=== PATIENT | female | born 2000 | race American Indian/Alaskan Native ===

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

== ENCOUNTER 2019-03-29 19:28 | Emergency (ER) | payer BC, MEDICAID ==
[2019-03-29 21:01] VITALS: BP 141/79
[2019-03-30] MEDS ORDERED: ALBUTEROL 2.5 MG/3 ML NEBU IH ONE (04:07)
[2019-03-30] MEDS ORDERED: dexAMETHasone 20 MG/5 ML VIAL IM ONE (04:07)
[2019-03-30] MEDS ORDERED: IPRATROPIUM 0.02% NEBU 2.5 ML IH ONE (04:07)
--- NOTE | 2019-03-30 05:35 | XRay Report ---
CHEST 2 VIEWS INDICATION: wheezing/cough. COMPARISON: FINDINGS: Support devices: None. Heart: Within normal limits. Lungs: Diffuse airway disease is present. No acute air space or interstitial disease. Pleura: No significant pleural effusion. No pneumothorax. Additional findings: None. IMPRESSION: 1. Airway disease is noted consistent with asthma Signer Name: Nash Cavazos MD Signed: 03/30/2019 5:31 AM Workstation Name: [id number]
--- NOTE | 2019-03-30 06:37 | Emergency Department Report ---
- General Chief Complaint: Adult Asthma Stated Complaint: COUGH/LYSSA Time Seen by Provider: 03/30/19 03:46 Source: patient Mode of arrival: Ambulatory Limitations: No Limitations - History of Present Illness Initial Comments: This is a 19-year-old female nontoxic, well nourished in appearance, no acute signs of distress presents to the ED with c/o of dry cough, wheezing and shortn ess of breathe x5 days. Patient describes cough as dry and nonproductive. Patient denies any sick contacts. Patient denies any recent travels, long car, recent hospital stays. Patient denies any calf pain or calf tenderness. Patient denies any chest pain, short of breath, fever, chills, nausea, vomiting, hemoptysis, numbness, tingling, headache or stiff neck. MD Complaint: cough, other (wheezing) -: days(s) (5) Severity scale (0 -10): 0 Consistency: constant Improves With: nothing Worsens With: nothing Associated Symptoms: cough, shortness of breath. denies: fever, chills, myalgias, diaphoresis, headache, rhinorrhea, nasal congestion, sore throat, stiff neck, chest pain, abdominal pain, nausea, vomiting, diarrhea, dysuria, rash, confusion, right sweats, weight loss, epistaxis, hoarseness, ear pain Treatments Prior to Arrival: none - Related Data Home Medications Medication Instructions Recorded Confirmed Last Taken Albuterol Sulfate [Proair Hfa] 04/20/16 Unknown Ibuprofen 04/20/16 Unknown Previous Rx's Medication Instructions Recorded Last Taken Type Ibuprofen [Motrin 600 MG tab] 600 mg PO Q8H PRN #30 tablet 04/20/16 Unknown Rx ALBUTEROL Inhaler (OR & NICU) 2 puff IH QID PRN #8.5 gram 03/30/19 Unknown Rx [ProAir HFA Inhaler] Prednisone [predniSONE 10 mg 10 mg PO .TAPER #1 tab.ds.pk 03/30/19 Unknown Rx (6-Day Pack, 21 Tabs)] Allergies Allergy/AdvReac Type Severity Reaction Status Date / Time No Known Allergies Allergy Unverified 04/20/16 10:46 ED Review of Systems ROS: Stated complaint: COUGH/LYSSA Other details as noted in HPI Constitutional: denies: chills, fever Eyes: denies: eye pain, eye discharge, vision change ENT: denies: ear pain, throat pain Respiratory: cough, shortness of breath, wheezing Cardiovascular: denies: chest pain, palpitations Endocrine: no symptoms reported Gastrointestinal: denies: abdominal pain, nausea, diarrhea Genitourinary: denies: urgency, dysuria, discharge Musculoskeletal: denies: back pain, joint swelling, arthralgia Skin: denies: rash, lesions Neurological: denies: headache, weakness, paresthesias Psychiatric: denies: anxiety, depression Hematological/Lymphatic: denies: easy bleeding, easy bruising ED Past Medical Hx - Past Medical History Previous Medical History?: Yes Hx Asthma: Yes Additional medical history: left knee pain - Surgical History Past Surgical History?: Yes Additional Surgical History: Left knee meniscus - Social History Smoking Status: Never Smoker Substance Use Type: Alcohol, Marijuana - Medications Home Medications: Home Medications Medication Instructions Recorded Confirmed Last Taken Type Albuterol Sulfate [Proair Hfa] 04/20/16 Unknown History Ibuprofen 04/20/16 Unknown History Ibuprofen [Motrin 600 MG tab] 600 mg PO Q8H PRN #30 tablet 04/20/16 Unknown Rx ALBUTEROL Inhaler (OR & NICU) 2 puff IH QID PRN #8.5 gram 03/30/19 Unknown Rx [ProAir HFA Inhaler] Prednisone [predniSONE 10 mg 10 mg PO .TAPER #1 tab.ds.pk 03/30/19 Unknown Rx (6-Day Pack, 21 Tabs)] ED Physical Exam - General Limitations: No Limitations General appearance: alert, in no apparent distress - Head Head exam: Present: atraumatic, normocephalic - Neck Neck exam: Present: normal inspection. Absent: tenderness, meningismus, lym phadenopathy - Respiratory Respiratory exam: Present: wheezes. Absent: respiratory distress, rales, rhonchi, stridor, chest wall tenderness, accessory muscle use, decreased breath sounds, prolonged expiratory - Cardiovascular Cardiovascular Exam: Present: regular rate, normal rhythm, normal heart sounds. Absent: bradycardia, tachycardia, irregular rhythm, systolic murmur, diastolic murmur, rubs, gallop - Extremities Exam Extremities exam: Present: normal inspection, full ROM - Back Exam Back exam: Present: normal inspection, full ROM - Neurological Exam Neurological exam: Present: alert, oriented X3, normal gait - Psychiatric Psychiatric exam: Present: normal affect, normal mood - Skin Skin exam: Present: warm, dry, intact, normal color. Absent: rash ED Course Vital Signs 03/29/19 20:45 Temperature 98.6 F Pulse Rate 70 Respiratory 18 Rate Blood Pressure 141/79 O2 Sat by Pulse 97 Oximetry - Reevaluation(s) Reevaluation #1: 03/30/19 06:41 Patient is speaking in full sentences with no signs of distress noted. ED Medical Decision Making - Medical Decision Making This is a 19-year-old female that presents with viral bronchitis. Patient is stable and was examined by me. Chest x-ray has been obtained and dictated by radiologist with normal exam. Patient is notified of x-ray results with no questions noted. Patient did receive breathing treatment and steroids in the ED which patient the symptoms has resolved and subsided. Posttreatment and there is no wheezing upon auscultation. Patient is discharged with albuterol and prednisone. Patient was instructed to increase hydration, rest and take Motrin for fever episodes. Vitals stable. Patient is nonfebrile and normal heart rate. Patient was instructed Follow-up with a primary care doctor in 3-5 days or if symptoms worsen and continue return to emergency room as soon as possible. At time time of discharge, the patient does not seem toxic or ill in appearance. No acute signs of distress noted. Patient agrees to discharge treatment plan of care. No further questions noted by the patient. Critical care attestation.: If time is entered above; I have spent that time in minutes in the direct care of this critically ill patient, excluding procedure time. ED Disposition Clinical Impression: Acute viral bronchiolitis Disposition: DC-01 TO HOME OR SELFCARE Is pt being admited?: No Does the pt Need Aspirin: No Condition: Stable Instructions: Acute Bronchitis (ED) Additional Instructions: Follow-up with a primary care doctor in 3-5 days or if symptoms worsen and continue return to emergency room as soon as possible. Prescriptions: Prednisone [predniSONE 10 mg (6-Day Pack, 21 Tabs)] 10 mg PO .TAPER #1 tab.ds.pk ALBUTEROL Inhaler (OR & NICU) [ProAir HFA Inhaler] 2 puff IH QID PRN #8.5 gram PRN Reason: Shortness Of Breath Referrals: PRIMARY MD SARAH [Primary Care Provider] - 3-5 Days FROILAN ROSE MD [Staff Physician] - 3-5 Days [facility] [Outside] - 3-5 Days Forms: Work/School Release Form(ED)
== END 2019-03-30 06:55 | disposition home or self-care (01) ==
LOC: ED 19:28
DX: J21.9 Acute bronchiolitis, unspecified (principal); J45.909 Unspecified asthma, uncomplicated; F12.10 Cannabis abuse, uncomplicated; Z79.1 Long term (current) use of non-steroidal anti-inflammatories (NSAID); Z98.890 Other specified postprocedural states; Z79.899 Other long term (current) drug therapy
CPT/HCPCS: 71046; 94644; 96372; 99283; J1100

== ENCOUNTER 2019-04-25 13:29 | Emergency (ER) | payer BC ==
[2019-04-25 13:54] VITALS: BP 119/74
--- NOTE | 2019-04-25 14:14 | Event Note ---
ED Screening Note Date of service: 04/25/19 Time: 14:13 ED Screening Note: 19 y o f presents with upper abd pin with n/v x 4days This initial assessment/diagnostic orders/clinical plan/treatment(s) is/are subject to change based on patients health status, clinical progression and re-assessment by fellow clinical providers in the ED. Further treatment and workup at subsequent clinical providers discretion. Patient/guardian urged not to elope from the ED as their condition may be serious if not clinically assessed and managed. Initial orders include: ua,upt cbc,cmp ivf? acc eval
[2019-04-25 16:16] LABS: Hematocrit 38.2 % (30.3-42.9); Hemoglobin 12.9 gm/dl (10.1-14.3); Mean Corpuscular HGB Conc 34 % (30-34); Mean Corpuscular Volume 88 fl (79-97); Platelet Count 256 K/mm3 (140-440); Red Blood Count 4.33 M/mm3 (3.65-5.03); Red Cell Distribution Width 13.3 % (13.2-15.2)
[2019-04-25 16:47] LABS: Basophils % (Manual) 0 % (0.0-1.8); Total Cells Counted 100
[2019-04-25 16:48] LABS: RBC Morphology Normal
[2019-04-25 17:21] LABS: Alanine Aminotransferase 13 units/L (7-56); Albumin 4.5 g/dL (3.9-5); BUN/Creatinine Ratio 23; Blood Urea Nitrogen 9 mg/dL (7-17); Calcium 10.1 mg/dL (8.4-10.2); Hemolysis Index 9
[2019-04-25 17:23] LABS: Bilirubin,Urine NEG (Negative); Blood,Urine NEG (Negative); Color,Urine Yellow (Yellow); Mucus,Urine 3+ /HPF; Protein,Urine <15 mg/dL mg/dL (Negative)
--- NOTE | 2019-04-25 20:29 | Emergency Department Report ---
ED N/V/D HPI - General Chief complaint: Nausea/Vomiting/Diarrhea Stated complaint: VOMITTING, STOMACH APIN Time Seen by Provider: 04/25/19 19:38 Source: patient Mode of arrival: Ambulatory Limitations: No Limitations - History of Present Illness Initial comments: Ms. Lynne is a 19 y/ o f who presents with upper abd pin with n/v x 4days. LMP 2 months ago. there is no fever or chills, states am n/v. pt is tolerating po at this time. Symptoms are exacerbated by nothing, symptoms are relieved by nothing. MD complaint: nausea, vomiting, abdominal pain (cramp) Onset/Timin -: Gradual Associated Abdominal Pain: Yes Location: LLQ, RLQ Radiation: none Severity: mild Pain Scale: 3 Quality: cramping Consistency: intermittent Improves with: none Worsens with: none Context: other (AMN ) Associated Symptoms: nausea/vomiting. denies: fever/chills - Related Data Home Medications Medication Instructions Recorded Confirmed Last Taken Albuterol Sulfate [Proair Hfa] 04/20/16 Unknown Ibuprofen 04/20/16 Unknown Previous Rx's Medication Instructions Recorded Last Taken Type Ibuprofen [Motrin 600 MG tab] 600 mg PO Q8H PRN #30 tablet 04/20/16 Unknown Rx Albuterol INH(or & Nicu Only) 2 puff IH QID PRN #8.5 gram 03/30/19 Unknown Rx [ProAir HFA Inhaler] Prednisone [predniSONE 10 mg 10 mg PO .TAPER #1 tab.ds.pk 03/30/19 Unknown Rx (6-Day Pack, 21 Tabs)] Doxylamine Succinate/Vit B6 1 each PO Q8H PRN #12 tablet. 04/25/19 Unknown Rx [Jessica Giron 10-10 mg Tablet] Allergies Allergy/AdvReac Type Severity Reaction Status Date / Time No Known Allergies Allergy Unverified 04/20/16 10:46 ED Review of Systems ROS: Stated complaint: VOMITTING, STOMACH APIN Other details as noted in HPI Constitutional: denies: chills, fever Eyes: denies: eye pain, eye discharge, vision change ENT: denies: ear pain, throat pain Respiratory: denies: cough, shortness of breath, wheezing Cardiovascular: denies: chest pain, palpitations Endocrine: no symptoms reported Gastrointestinal: abdominal pain, nausea, vomiting. denies: diarrhea, constipation Genitourinary: denies: urgency, dysuria, frequency, hematuria, discharge Musculoskeletal: denies: back pain, joint swelling, arthralgia Skin: denies: rash, lesions Neurological: denies: headache, weakness, numbness, paresthesias, confusion, vertigo Psychiatric: denies: anxiety, depression Hematological/Lymphatic: denies: easy bleeding, easy bruising ED Past Medical Hx - Past Medical History Previous Medical History?: Yes Hx Asthma: Yes Additional medical history: left knee pain - Surgical History Past Surgical History?: Yes Additional Surgical History: Left knee meniscus - Social History Smoking Status: Never Smoker Substance Use Type: Marijuana - Medications Home Medications: Home Medications Medication Instructions Recorded Confirmed Last Taken Type Albuterol Sulfate [Proair Hfa] 04/20/16 Unknown History Ibuprofen 04/20/16 Unknown History Ibuprofen [Motrin 600 MG tab] 600 mg PO Q8H PRN #30 tablet 04/20/16 Unknown Rx Albuterol INH(or & Nicu Only) 2 puff IH QID PRN #8.5 gram 03/30/19 Unknown Rx [ProAir HFA Inhaler] Prednisone [predniSONE 10 mg 10 mg PO .TAPER #1 tab.ds.pk 03/30/19 Unknown Rx (6-Day Pack, 21 Tabs)] Doxylamine Succinate/Vit B6 1 each PO Q8H PRN #12 tablet.dr 04/25/19 Unknown Rx [Jessica Giron 10-10 mg Tablet] ED Physical Exam - General Limitations: No Limitations General appearance: alert, in no apparent distress - Head Head exam: Present: atraumatic, normocephalic - Eye Eye exam: Present: normal appearance, PERRL, EOMI Pupils: Present: normal accommodation - ENT ENT exam: Present: mucous membranes moist - Neck Neck exam: Present: normal inspection, full ROM. Absent: tenderness - Respiratory Respiratory exam: Present: normal lung sounds bilaterally. Absent: respiratory distress, wheezes, stridor, chest wall tenderness - Cardiovascular Cardiovascular Exam: Present: regular rate, normal rhythm, normal heart sounds. Absent: systolic murmur, diastolic murmur, rubs, gallop - GI/Abdominal GI/Abdominal exam: Present: soft, normal bowel sounds. Absent: distended, tenderness, guarding, rebound, rigid, bruit, hernia - Rectal Rectal exam: Present: deferred - Extremities Exam Extremities exam: Present: normal inspection, full ROM, normal capillary refill. Absent: tenderness - Back Exam Back exam: Present: normal inspection, full ROM. Absent: tenderness, CVA tenderness (R), CVA tenderness (L), rash noted - Neurological Exam Neurological exam: Present: alert, oriented X3, CN II-XII intact, normal gait - Psychiatric Psychiatric exam: Present: normal affect, normal mood - Skin Skin exam: Present: warm, dry, intact, normal color. Absent: rash ED Course Vital Signs 04/25/19 13:51 Temperature 98.9 F Pulse Rate 66 Respiratory 16 Rate Blood Pressure 119/74 O2 Sat by Pulse 100 Oximetry ED Medical Decision Making - Lab Data Result diagrams: 04/25/19 15:41 04/25/19 15:41 Labs 04/25/19 04/25/19 04/25/19 15:41 15:41 15:41 WBC 3.5 L RBC 4.33 Hgb 12.9 Hct 38.2 MCV 88 MCH 30 MCHC 34 RDW 13.3 Plt Count 256 [place] % (Auto) Packing Room Supervisor Add Manual Diff Complete Total Counted 100 Seg Neuts % (Manual) 57.0 Band Neutrophils % 0 Lymphocytes % (Manual) 26.0 Reactive Lymphs % (Man) 0 Monocytes % (Manual) 16.0 H Eosinophils % (Manual) 1.0 Basophils % (Manual) 0 Metamyelocytes % 0 Myelocytes % 0 Promyelocytes % 0 Blast Cells % 0 Nucleated RBC % Not Reportable Seg Neutrophils # Man 2.0 Band Neutrophils # 0.0 Lymphocytes # (Manual) 0.9 L Abs React Lymphs (Man) 0.0 Monocytes # (Manual) 0.6 Eosinophils # (Manual) 0.0 Basophils # (Manual) 0.0 Metamyelocytes # 0.0 Myelocytes # 0.0 Promyelocytes # 0.0 Blast Cells # 0.0 WBC Morphology Not Reportable Hypersegmented Neuts Not Reportable Hyposegmented Neuts Not Reportable Hypogranular Neuts Not Reportable Smudge Cells Not Reportable Toxic Granulation Not Reportable Toxic Vacuolation Not Reportable Dohle Bodies Not Reportable Pelger-Huet Anomaly Not Reportable Becki Rods Not Reportable Platelet Estimate Appears normal Clumped Platelets Not Reportable Plt Clumps, EDTA Not Reportable Large Platelets Not Reportable Giant Platelets Not Reportable Platelet Satelliting Not Reportable Plt Morphology Comment Not Reportable RBC Morphology Normal Dimorphic RBCs Not Reportable Polychromasia Not Reportable Hypochromasia Not Reportable Poikilocytosis Not Reportable Anisocytosis Not Reportable Microcytosis Not Reportable Macrocytosis Not Reportable Spherocytes Not Reportable Pappenheimer Bodies Not Reportable Sickle Cells Not Reportable Target Cells Not Reportable Tear Drop Cells Not Reportable Ovalocytes Not Reportable Helmet Cells Not Reportable [place] Bodies Not Reportable [place] Rings Not Reportable [place] Cells Not Reportable Bite Cells Not Reportable Crenated Cell Not Reportable Elliptocytes Not Reportable Acanthocytes (Spur) Not Reportable Rouleaux Not Reportable Hemoglobin C Crystals Not Reportable Schistocytes Not Reportable Malaria parasites Not Reportable Dave Bodies Not Reportable Hem Pathologist Commnt No Sodium 134 L Potassium 3.6 Chloride 98.4 Carbon Dioxide 17 L Anion Gap 22 BUN 9 Creatinine 0.4 L Estimated GFR > 60 BUN/Creatinine Ratio 23 Glucose 82 Calcium 10.1 Total Bilirubin 0.90 AST 21 ALT 13 Alkaline Phosphatase 36 Total Protein 8.2 Albumin 4.5 Albumin/Globulin Ratio 1.2 Lipase 17 HCG, Qual Positive Urine Color Urine Turbidity Urine pH Ur Specific [place] Urine Protein Urine Glucose (UA) Urine Ketones Urine Blood Urine Nitrite Urine Bilirubin Urine Urobilinogen Ur Leukocyte Esterase Urine WBC (Auto) Urine RBC (Auto) U Epithel Cells (Auto) Urine Mucus 04/25/19 16:15 WBC RBC Hgb Hct MCV MCH MCHC RDW Plt Count [place] % (Auto) Add Manual Diff Total Counted Seg Neuts % (Manual) Band Neutrophils % Lymphocytes % (Manual) Reactive Lymphs % (Man) Monocytes % (Manual) Eosinophils % (Manual) Basophils % (Manual) Metamyelocytes % Myelocytes % Promyelocytes % Blast Cells % Nucleated RBC % Seg Neutrophils # Man Band Neutrophils # Lymphocytes # (Manual) Abs React Lymphs (Man) Monocytes # (Manual) Eosinophils # (Manual) Basophils # (Manual) Metamyelocytes # Myelocytes # Promyelocytes # Blast Cells # WBC Morphology Hypersegmented Neuts Hyposegmented Neuts Hypogranular Neuts Smudge Cells Toxic Granulation Toxic Vacuolation Dohle Bodies Pelger-Huet Anomaly Becki Rods Platelet Estimate Clumped Platelets Plt Clumps, EDTA Large Platelets Giant Platelets Platelet Satelliting Plt Morphology Comment RBC Morphology Dimorphic RBCs Polychromasia Hypochromasia Poikilocytosis Anisocytosis Microcytosis Macrocytosis Spherocytes Pappenheimer Bodies Sickle Cells Target Cells Tear Drop Cells Ovalocytes Helmet Cells Jim[place] Bodies [place] Rings [place] Cells Bite Cells Crenated Cell Elliptocytes Acanthocytes (Spur) Rouleaux Hemoglobin C Crystals Schistocytes Malaria parasites Dave Bodies Hem Pathologist Commnt Sodium Potassium Chloride Carbon Dioxide Anion Gap BUN Creatinine Estimated GFR BUN/Creatinine Ratio Glucose Calcium Total Bilirubin AST ALT Alkaline Phosphatase Total Protein Albumin Albumin/Globulin Ratio Lipase HCG, Qual Urine Color Yellow Urine Turbidity Clear Urine pH 7.0 Ur Specific [place] 1.025 Urine Protein <15 mg/dl Urine Glucose (UA) Neg Urine Ketones 80 Urine Blood Neg Urine Nitrite Neg Urine Bilirubin Neg Urine Urobilinogen 4.0 Ur Leukocyte Esterase Neg Urine WBC (Auto) 1.0 Urine RBC (Auto) 1.0 U Epithel Cells (Auto) 4.0 Urine Mucus 3+ - Radiology Data Radiology results: report reviewed, image reviewed single IUP 6 weeks and 2 days, FHR: 107 bpm - Medical Decision Making US: Single IUP 6 weeks and 2 days, fhr: 107 bpm, plan diclegis prn n/v, follow up with [facility] in 2-3 days. pt is currently tolerating po intake without n/v, ivf complete. pt advises that she feels much better. will dc to home in stable condition at this time. Critical care attestation.: If time is entered above; I have spent that time in minutes in the direct care of this critically ill patient, excluding procedure time. ED Disposition Clinical Impression: Qualifiers: Weeks of gestation: less than 8 weeks Qualified Code(s): Z3A.01 - Less than 8 weeks gestation of Nausea and vomiting Qualifiers: Vomiting type: unspecified Vomiting Intractability: non-intractable Qualified Code(s): R11.2 - Nausea with vomiting, unspecified Disposition: DC-01 TO HOME OR SELFCARE Is pt being admited?: No Does the pt Need Aspirin: No Condition: Stable Instructions: (ED), Acute Nausea and Vomiting (ED) Prescriptions: Doxylamine Succinate/Vit B6 [Jessica Giron 10-10 mg Tablet] 1 each PO Q8H PRN #12 tablet.dr CAMACHO Reason: Nausea And Vomiting Referrals: PRIMARY CARE, [Primary Care Provider] - 3-5 Days Forms: Work/School Release Form(ED) Time of Disposition: 20:36
--- NOTE | 2019-04-25 20:36 | Ultrasound Report ---
ULTRASOUND OBSTETRIC Indication: abd pain pos preg Findings: There is a single, living intrauterine . [place]-rump length = .55 cm = 6 weeks, 2 day(s). heart rate is 107 beats per minute. The ovaries are normal. There is no free fluid. Impression: Single, living intrauterine with estimated sonographic age of 6 weeks, 2 day(s). Signer Name: Nash Cavazos MD Signed: 04/25/2019 8:32 PM Workstation Name: [id number]
== END 2019-04-25 20:45 | disposition home or self-care (01) ==
LOC: ED 13:29
DX: O21.8 Other vomiting complicating pregnancy (principal); J45.909 Unspecified asthma, uncomplicated; F12.10 Cannabis abuse, uncomplicated; Z79.1 Long term (current) use of non-steroidal anti-inflammatories (NSAID); Z79.899 Other long term (current) drug therapy; Z3A.01 Less than 8 weeks gestation of pregnancy
CPT/HCPCS: 36415; 76817; 80053; 81001; 83690; 84702; 84703; 85007; 85025

== ENCOUNTER 2021-03-06 11:14 | Emergency (ER) | payer BC ==
[2021-03-06] MEDS ORDERED: SODIUM CHLORIDE 0.9% 1000 ML 1,000 ML IV ONE (13:07)
[2021-03-06] MEDS ORDERED: MORPHINE 4 MG/1 ML INJ IV ONE (13:07)
[2021-03-06] MEDS ORDERED: ONDANSETRON 4 MG/2 ML INJ IV ONE (13:07)
[2021-03-06] MEDS ORDERED: FAMOTIDINE 20 MG TAB PO ONE (13:08)
--- NOTE | 2021-03-06 13:08 | Emergency Department Report ---
<GOLD SANCHEZ - Last Filed: 03/07/21 07:24> ED N/V/D HPI - General Chief complaint: Nausea/Vomiting/Diarrhea Stated complaint: ABD PAIN Time Seen by Provider: 03/06/21 12:47 Source: patient Mode of arrival: Ambulatory Limitations: No Limitations - History of Present Illness Initial comments: 21-year-old female with a past medical history of asthma was brought to the ER today by mom with complaints of nausea vomiting and abdominal pain. Patient states that she has been vomiting since February 27. She states that the emesis occurs about 3-4 times per day and is been mainly liquid or bile. She reports no coffee-ground emesis or hematemesis. She reports epigastric pain that radiates down into her lower abdomen which has been constant since she started vomiting. She denies any diarrhea or constipation. Her last bowel movement was yesterday and normal. She denies any UTI symptoms. Her last menstrual cycle was February 18. She is not on any control. She denies any abdominal surgeries in the past. She denies any illicit drug use or alcohol abuse. She denies any NSAID abuse. Patient states that she did go to an urgent care when the symptoms first started. They checked her urine and it was negative for . She was told that she was dehydrated and symptoms were likely related to reflux. Prescription for Zofran and Prilosec was supposedly called into the pharmacy, but when they went to the pharmacy to warehouse order picker the prescription the pharmacist reported to them that it was not available. Mom states that they tried calling the urgent care a few times without success in reaching anybody to talk about the prescriptions. MD complaint: nausea, vomiting, abdominal pain -: days(s) (since february 27) - Related Data Home Medications Medication Instructions Recorded Confirmed Last Taken Albuterol Sulfate [Proair Hfa] 04/20/16 Unknown Ibuprofen 04/20/16 Unknown Previous Rx's Medication Instructions Recorded Last Taken Type Ibuprofen [Motrin 600 MG tab] 600 mg PO Q8H PRN #30 tablet 04/20/16 Unknown Rx Albuterol Mdi (or & Nicu Only) 2 puff IH QID PRN #8.5 gram 03/30/19 Unknown Rx [ProAir HFA Inhaler] Prednisone [predniSONE 10 mg 10 mg PO .TAPER #1 tab.ds.pk 03/30/19 Unknown Rx (6-Day Pack, 21 Tabs)] Doxylamine Succinate/Vit B6 1 each PO Q8H PRN #12 tablet. 04/25/19 Unknown Rx [Jessica Giron 10-10 mg Tablet] Famotidine [Pepcid] 20 mg PO BID #30 tablet 03/06/21 Unknown Rx Ondansetron [Zofran Odt] 4 mg PO Q8HR #20 tab.rapdis 03/06/21 Unknown Rx Allergies Allergy/AdvReac Type Severity Reaction Status Date / Time No Known Allergies Allergy Verified 03/06/21 11:17 ED Review of Systems Comment: All other systems reviewed and negative Constitutional: denies: chills, diaphoresis, fever, malaise, weakness Eyes: denies: eye pain, eye discharge, vision change ENT: denies: ear pain, throat pain Respiratory: denies: cough, shortness of breath, SOB with exertion, SOB at rest, wheezing Cardiovascular: denies: chest pain, palpitations Gastrointestinal: abdominal pain, nausea, vomiting. denies: diarrhea, constipa tion, hematemesis, hematochezia Genitourinary: denies: urgency, dysuria, frequency, hematuria, discharge, abnormal menses, dyspareunia Musculoskeletal: denies: back pain, joint swelling, arthralgia, myalgia Skin: denies: rash, lesions, change in color, change in hair/nails, pruritus Neurological: denies: headache, weakness, numbness, paresthesias, confusion, abnormal gait, vertigo Psychiatric: denies: anxiety, depression, visual hallucinations, homicidal thoughts, suicidal thoughts Hematological/Lymphatic: denies: easy bleeding, easy bruising, swollen glands ED Past Medical Hx - Past Medical History Hx Asthma: Yes Additional medical history: left knee pain - Surgical History Additional Surgical History: Left knee meniscus - Social History Smoking Status: Never Smoker Substance Use Type: Marijuana - Medications Home Medications: Home Medications Medication Instructions Recorded Confirmed Last Taken Type Albuterol Sulfate [Proair Hfa] 04/20/16 Unknown History Ibuprofen 04/20/16 Unknown History Ibuprofen [Motrin 600 MG tab] 600 mg PO Q8H PRN #30 tablet 04/20/16 Unknown Rx Albuterol Mdi (or & Nicu Only) 2 puff IH QID PRN #8.5 gram 03/30/19 Unknown Rx [ProAir HFA Inhaler] Prednisone [predniSONE 10 mg 10 mg PO .TAPER #1 tab.ds.pk 03/30/19 Unknown Rx (6-Day Pack, 21 Tabs)] Doxylamine Succinate/Vit B6 1 each PO Q8H PRN #12 tablet. 04/25/19 Unknown Rx [Diclegis Dr 10-10 mg Tablet] Famotidine [Pepcid] 20 mg PO BID #30 tablet 03/06/21 Unknown Rx Ondansetron [Zofran Odt] 4 mg PO Q8HR #20 tab.rapdis 03/06/21 Unknown Rx ED Physical Exam - General Limitations: No Limitations General appearance: alert, in no apparent distress - Head Head exam: Present: atraumatic, normocephalic, normal inspection - Eye Eye exam: Present: normal appearance, PERRL, EOMI Pupils: Present: normal accommodation - Neck Neck exam: Present: normal inspection, full ROM. Absent: meningismus - Respiratory Respiratory exam: Present: normal lung sounds bilaterally. Absent: respiratory distress, wheezes, rales, rhonchi, stridor - Cardiovascular Cardiovascular Exam: Present: regular rate, normal rhythm, normal heart sounds - GI/Abdominal GI/Abdominal exam: Present: soft, tenderness (Epigastric ), guarding (mild ). Absent: distended, rebound, rigid - Neurological Exam Neurological exam: Present: alert, oriented X3, CN II-XII intact, normal gait - Psychiatric Psychiatric exam: Present: normal affect, normal mood ED Medical Decision Making - Lab Data Result diagrams: 03/06/21 14:35 03/06/21 14:35 - Radiology Data Radiology results: report reviewed Patient: SABRINA CORONA MR#: [id number] 3 : 2000 Acct:[id number] Age/Sex: 21 / F ADM Date: 03/06/21 Loc: ED Attending Dr: Ordering Physician: GOLD SANCHEZ Date of Service: 03/06/21 Procedure(s): US abdomen limited Accession Number(s): [id number] cc: GOLD SANCHEZ LIMITED RUQ ABDOMINAL ULTRASOUND INDICATION: epigastric pain/nausea vomiting. COMPARISON: No relevant prior imaging study available. FINDINGS: Pancreas: Visualized portions show no significant abnormality. Abdominal Aorta: No significant abnormality. IVC: No significant abnormality. Liver: The liver measures 11.7 cm in length. No significant abnormality. Normal hepatopedal blood flow in the main portal vein. Gallbladder: No significant abnormality. Bile ducts: No significant abnormality. Common bile duct measures 2 mm. Right kidney: No significant abnormality visualized.. Free fluid: None. Additional Findings: None. IMPRESSION: 1. Normal exam. Signer Name: Raffy Cifuentes MD Signed: 03/06/2021 2:20 PM Workstation Name: [id number] Transcribed By: HORACE Dictated By: Raffy Cifuentes MD Electronically Authenticated By: Raffy Cifuentes MD Signed Date/Time: 03/06/211419 DD/ 19 TD/TT: - Medical Decision Making 162: Patient reports feeling better after IV fluids, antiemetics and pain meds. Repeat abdominal exam shows a soft nontender abdomen. Gallbladder ultrasound negative for anything acute. All labs reviewed with patient --hCG is positive. Remaining labs unremarkable. Urinalysis was 41 WBCs, but leukocytes negative, nitrites negative and there is no bacteria and patient has no UTI symptoms. Reflex urine culture pending. I will continue to monitor culture and if positive patient will be started on an biotics. Given that patient has no lower abdominal pain or vaginal symptoms emergent pelvic ultrasound or further work-up indicated at this time. I did discuss all the results with patient. She feels better and is ready to go. Patient states she will follow up with [facility] to start care. I did discuss before if at any point she develops pelvic pain or vaginal bleeding to return immediately to the ER. Patient expressed understanding of all instructions and agree with plan. Patient was stable at time of discharge. ED Disposition Clinical Impression: Nausea and vomiting, Disposition: HOME / SELF CARE / HOMELESS Is pt being admited?: No Does the pt Need Aspirin: No Condition: Stable Instructions: Care, Nausea and Vomiting, Adult, [id number], First Trimester of Additional Instructions: I recommend that you take the Zofran as prescribed. Take the Pepcid as prescribed. Tylenol is the safest thing to take as needed for pain. I do recommend following up with your [facility], call next week to schedule an appointment and to start care. Return to the ER if at any point you develop severe low abdominal/pelvic pain with associated vaginal bleeding. Prescriptions: Famotidine [Pepcid] 20 mg PO BID #30 tablet Ondansetron [Zofran Odt] 4 mg PO Q8HR #20 tab.rapdis Referrals: [facility] [Provider Group] - 3-5 Days [facility] [Provider Group] - 3-5 Days Forms: Work/School Release Form(ED) Time of Disposition: 16:14 <MAE KASPER - Last Filed: 03/08/21 07:05> ED Review of Systems ROS: Stated complaint: ABD PAIN Other details as noted in HPI ED Course Vital Signs 03/06/21 03/06/21 11:22 16:30 Temperature 98.6 F Pulse Rate 93 H 60 Respiratory 20 16 Rate Blood Pressure 128/81 Blood Pressure 142/78 [Right] O2 Sat by Pulse 99 96 Oximetry ED Medical Decision Making - Lab Data Result diagrams: 03/06/21 14:35 03/06/21 14:35 - Medical Decision Making urine culture reviewed + skin polina. pt does not require call back for antibiotics Critical Care Time: No Critical care attestation.: If time is entered above; I have spent that time in minutes in the direct care of this critically ill patient, excluding procedure time.
--- NOTE | 2021-03-06 14:24 | Ultrasound Report ---
LIMITED RUQ ABDOMINAL ULTRASOUND INDICATION: epigastric pain/nausea vomiting. COMPARISON: No relevant prior imaging study available. FINDINGS: Pancreas: Visualized portions show no significant abnormality. Abdominal Aorta: No significant abnormality. IVC: No significant abnormality. Liver: The liver measures 11.7 cm in length. No significant abnormality. Normal hepatopedal blood irina w in the main portal vein. Gallbladder: No significant abnormality. Bile ducts: No significant abnormality. Common bile duct measures 2 mm. Right kidney: No significant abnormality visualized.. Free fluid: None. Additional Findings: None. IMPRESSION: 1. Normal exam. Signer Name: Raffy Cifuentes MD Signed: 03/06/2021 2:20 PM Workstation Name: [email or web address]
[2021-03-06 15:05] LABS: Bilirubin,Urine NEG (Negative); Blood,Urine NEG (Negative); Color,Urine Yellow (Yellow); Mucus,Urine 3+ /HPF
[2021-03-06 15:18] LABS: Alanine Aminotransferase 16 units/L (7-56); Albumin 4.4 g/dL (3.9-5); Blood Urea Nitrogen 10 mg/dL (7-17); Hemolysis Index 10
[2021-03-06 15:21] LABS: BUN/Creatinine Ratio 20
[2021-03-06 15:29] LABS: Hematocrit 38.9 % (30.3-42.9); Hemoglobin 12.8 gm/dl (10.1-14.3); Mean Corpuscular HGB Conc 33 % (30-34); Mean Corpuscular Volume 91 fl (79-97); Platelet Count 267 K/mm3 (140-440); Red Blood Count 4.26 M/mm3 (3.65-5.03); Red Cell Distribution Width 12.8 % (13.2-15.2)
[2021-03-06] MEDS ORDERED: POTASSIUM CHLORIDE ER 20 MEQ TAB PO ONE (16:11)
[2021-03-06 16:31] VITALS: BP 142/78
[2021-03-06 17:17] LABS: Band Neutrophils # (Manual) 0.1 K/mm3; Total Cells Counted 100
[2021-03-06 17:18] LABS: Platelet Estimate Consistent w Auto; RBC Morphology Normal
== END 2021-03-06 16:31 | disposition home or self-care (01) ==
LOC: ED 11:14
DX: O21.9 Vomiting of pregnancy, unspecified (principal); O26.899 Other specified pregnancy related conditions, unspecified trimester; Z3A.00 Weeks of gestation of pregnancy not specified; J45.909 Unspecified asthma, uncomplicated; F12.90 Cannabis use, unspecified, uncomplicated
CPT/HCPCS: 36415; 76705; 80053; 81001; 83690; 84703; 85007; 85025; 87086; 96361; 96374; 96375; 99284; J2270; J2405; J7030; Q0162

== ENCOUNTER 2021-10-23 11:01 | Emergency (ER) | payer BC ==
[2021-10-23 12:14] VITALS: BP 119/77
[2021-10-23 12:49] LABS: Basophils % (Auto) 0.8 % (0.0-1.8); Eosinophils % (Auto) 0.7 % (0.0-4.3); Hematocrit 38.5 % (30.3-42.9); Hemoglobin 13.4 gm/dl (10.1-14.3); Lymphocytes # (Auto) 0.7 K/mm3 (1.2-5.4); Lymphocytes % (Auto) 15.5 % (13.4-35.0); Mean Corpuscular HGB Conc 35 % (30-34); Mean Corpuscular Volume 90 fl (79-97); Monocytes # (Auto) 0.5 K/mm3 (0.0-0.8); Monocytes % (Auto) 11.8 % (0.0-7.3); Platelet Count 232 K/mm3 (140-440); Red Blood Count 4.26 M/mm3 (3.65-5.03); Red Cell Distribution Width 13.2 % (13.2-15.2)
[2021-10-23 13:37] LABS: Alanine Aminotransferase 20 units/L (7-56); Albumin 4.9 g/dL (3.9-5); Blood Urea Nitrogen 8 mg/dL (7-17); Calcium 9.9 mg/dL (8.4-10.2); Hemolysis Index 7
[2021-10-23 13:56] LABS: BUN/Creatinine Ratio 13
[2021-10-23] MEDS ORDERED: SUCRALFATE 1 GM TAB PO ONE (16:38)
[2021-10-23] MEDS ORDERED: FAMOTIDINE 20 MG TAB PO ONE (16:38)
[2021-10-23] MEDS ORDERED: ONDANSETRON 4 MG ODT TAB PO ONE (16:38)
--- NOTE | 2021-10-23 16:42 | Emergency Department Report ---
ED Abdominal Pain HPI - General Chief Complaint: Abdominal Pain Stated Complaint: NAUSEA,CHEST PAIN BELOW LEFT BREAST Source: patient Mode of arrival: Ambulatory Limitations: No Limitations - History of Present Illness Initial Comments: Patient is a nulliparous 21-year-old -[place] female with a history of asthma and chronic recurrent GERD which is untreated presents to the ED with complaint of acute onset persistent epigastric pain with a burning sensation that radiates to the substernal chest wall with nausea and vomiting intermittently for the last 2 days. Patient states that she has been taking Tums with minimal relief. Patient denies diarrhea, dysuria, urinary frequency and urgency, cough, sore throat, shortness of breath, headache, dizziness, syncope, hematemesis, hematochezia, vaginal discharge, vaginal bleeding, neck pain, palpitations, fever and chills or headache. MD Complaint: abdominal pain (Epigastric pain), other (Nausea and vomiting) -: days(s) (2) Location: epigastric Radiation: chest (Substernal with burning sensation) Migration to: no migration Severity: severe Severity scale (0 -10): 8 Quality: aching, sharp, burning Consistency: intermittent Improves With: nothing Worsens With: eating, vomiting Context: other (GERD) Associated Symptoms: denies other symptoms, nausea, vomiting, anorexia. denies: diarrhea, fever, constipation, dysuria, hematemesis, hematochezia, melena, hematuria, syncope - Related Data LMP Date: 10/02/21 Home Medications Medication Instructions Recorded Confirmed Last Taken Albuterol Sulfate [Proair Hfa] 04/20/16 Unknown Ibuprofen 04/20/16 Unknown Previous Rx's Medication Instructions Recorded Last Taken Type Ibuprofen [Motrin 600 MG tab] 600 mg PO Q8H PRN #30 tablet 04/20/16 Unknown Rx Albuterol Mdi (or & Nicu Only) 2 puff IH QID PRN #8.5 gram 03/30/19 Unknown Rx [ProAir HFA Inhaler] Prednisone [predniSONE 10 mg 10 mg PO .TAPER #1 tab.ds.pk 03/30/19 Unknown Rx (6-Day Pack, 21 Tabs)] Doxylamine Succinate/Vit B6 1 each PO Q8H PRN #12 tablet. 04/25/19 Unknown Rx [Jessica Giron 10-10 mg Tablet] Ondansetron [Zofran Odt] 4 mg PO Q8HR #20 tab.rapdis 03/06/21 Unknown Rx Dicyclomine [Bentyl] 20 mg PO Q6H PRN #30 tablet 10/23/21 Unknown Rx Famotidine [Pepcid] 20 mg PO BID #60 tablet 10/23/21 Unknown Rx Omeprazole 40 mg PO DAILY #30 cap 10/23/21 Unknown Rx Ondansetron [Zofran Odt] 4 mg PO Q8HR PRN #20 tab.rapdis 10/23/21 Unknown Rx Allergies Allergy/AdvReac Type Severity Reaction Status Date / Time No Known Allergies Allergy Verified 10/23/21 17:01 ED Review of Systems ROS: Stated complaint: NAUSEA,CHEST PAIN BELOW LEFT BREAST Other details as noted in HPI Constitutional: denies: chills, fever Eyes: denies: eye pain, eye discharge, vision change ENT: denies: ear pain, throat pain Respiratory: denies: cough, shortness of breath, wheezing Cardiovascular: denies: chest pain, palpitations Endocrine: no symptoms reported Gastrointestinal: abdominal pain, nausea, vomiting. denies: diarrhea Genitourinary: denies: urgency, dysuria, discharge Musculoskeletal: denies: back pain, joint swelling, arthralgia Skin: denies: rash, lesions Neurological: denies: headache, weakness, paresthesias Psychiatric: denies: anxiety, depression Hematological/Lymphatic: denies: easy bleeding, easy bruising ED Past Medical Hx - Past Medical History Hx Asthma: Yes Additional medical history: left knee pain - Surgical History Additional Surgical History: Left knee meniscus - Social History Smoking Status: Never Smoker Substance Use Type: Marijuana - Medications Home Medications: Home Medications Medication Instructions Recorded Confirmed Last Taken Type Albuterol Sulfate [Proair Hfa] 04/20/16 Unknown History Ibuprofen 04/20/16 Unknown History Ibuprofen [Motrin 600 MG tab] 600 mg PO Q8H PRN #30 tablet 04/20/16 Unknown Rx Albuterol Mdi (or & Nicu Only) 2 puff IH QID PRN #8.5 gram 03/30/19 Unknown Rx [ProAir HFA Inhaler] Prednisone [predniSONE 10 mg 10 mg PO .TAPER #1 tab.ds.pk 03/30/19 Unknown Rx (6-Day Pack, 21 Tabs)] Doxylamine Succinate/Vit B6 1 each PO Q8H PRN #12 tablet. 04/25/19 Unknown Rx [Jessica Giron 10-10 mg Tablet] Ondansetron [Zofran Odt] 4 mg PO Q8HR #20 tab.rapdis 03/06/21 Unknown Rx Dicyclomine [Bentyl] 20 mg PO Q6H PRN #30 tablet 10/23/21 Unknown Rx Famotidine [Pepcid] 20 mg PO BID #60 tablet 10/23/21 Unknown Rx Omeprazole 40 mg PO DAILY #30 cap 10/23/21 Unknown Rx Ondansetron [Zofran Odt] 4 mg PO Q8HR PRN #20 tab.rapdis 10/23/21 Unknown Rx ED Physical Exam - General Limitations: No Limitations General appearance: alert, in no apparent distress - Head Head exam: Present: atraumatic, normocephalic, normal inspection - Eye Eye exam: Present: normal appearance, PERRL, EOMI Pupils: Present: normal accommodation - ENT ENT exam: Present: normal exam, normal orophraynx, mucous membranes moist, TM's normal bilaterally, normal external ear exam - Neck Neck exam: Present: normal inspection, full ROM. Absent: tenderness - Respiratory Respiratory exam: Present: normal lung sounds bilaterally. Absent: respiratory distress, wheezes, rales, rhonchi, chest wall tenderness, accessory muscle use, decreased breath sounds, prolonged expiratory - Cardiovascular Cardiovascular Exam: Present: normal rhythm, bradycardia, normal heart sounds. Absent: systolic murmur, diastolic murmur, rubs, gallop - GI/Abdominal GI/Abdominal exam: Present: soft, normal bowel sounds. Absent: tenderness, guarding, rebound, hyperactive bowel sounds, hypoactive bowel sounds, organomegaly - Extremities Exam Extremities exam: Present: normal inspection, full ROM, normal capillary refill. Absent: tenderness, pedal edema, joint swelling, calf tenderness - Back Exam Back exam: Present: normal inspection, full ROM. Absent: tenderness, CVA tenderness (R), CVA tenderness (L), muscle spasm, paraspinal tenderness, vertebral tenderness - Neurological Exam Neurological exam: Present: alert, oriented X3, CN II-XII intact, normal gait, reflexes normal - Psychiatric Psychiatric exam: Present: normal affect, normal mood - Skin Skin exam: Present: warm, dry, intact, normal color. Absent: rash ED Course Vital Signs 10/23/21 12:07 Temperature 98.4 F Pulse Rate 58 L Respiratory 18 Rate Blood Pressure 119/77 [Left] O2 Sat by Pulse 100 Oximetry ED Medical Decision Making - Lab Data Result diagrams: 10/23/21 12:18 10/23/21 12:18 - Medical Decision Making This is a nulliparous 21-year-old -[place] female with a history of asthma and chronic recurrent GERD which is untreated presents to the ED with complaint of acute onset persistent epigastric pain with a burning sensation that radiates to the substernal chest wall with nausea and vomiting intermittently for the last 2 days. Patient states that she has been taking Tums with minimal relief. In the ED, patient is alert and oriented x3 and is not in any distress. Patient is hemodynamically stable. Lab test results were reviewed and are all nonactionable. Patient was treated for nausea and also GERD with antacids. Patient was discharged home on medications and advised to follow-up with the GI physician Dr. Tj Mina for further evaluation. Patient is advised to contact Dr. Mina's office first thing in the morning on Tuesday, October 26, 2021 to schedule a follow-up appointment. Patient was advised return to the ED immediately if symptoms get worse. - Differential Diagnosis GERD; gastritis; gastroenteritis; UTI; Critical care attestation.: If time is entered above; I have spent that time in minutes in the direct care of this critically ill patient, excluding procedure time. ED Disposition Clinical Impression: Acute epigastric pain, Nausea and vomiting in adult patient GERD (gastroesophageal reflux disease) Qualifiers: Esophagitis presence: esophagitis presence not specified Qualified Code(s): K21.9 - Gastro-esophageal reflux disease without esophagitis Disposition: HOME / SELF CARE / HOMELESS Is pt being admited?: No Does the pt Need Aspirin: No Condition: Stable Instructions: Nausea and Vomiting, Adult, [id number], Abdominal Pain, Adult, [id number], Gastroesophageal Reflux Disease, Adult, [id number], Abdominal Pain (ED) Additional Instructions: All lab test results were reviewed and are all nonactionable. Therefore your symptoms are likely due to GERD complications. Take medication as advised, drink plenty of fluids, follow-up with the GI physician Dr. Tj Mina in the next 3 to 5 days for reevaluation. Contact Dr. Tj Mina's office first thing the morning on Tuesday, October 26, 2021 to schedule a follow-up appointment. Return to the ED immediately if symptoms get worse. Prescriptions: Dicyclomine [Bentyl] 20 mg PO Q6H PRN #30 tablet PRN Reason: Abdominal pain Omeprazole 40 mg PO DAILY #30 cap Famotidine [Pepcid] 20 mg PO BID #60 tablet Ondansetron [Zofran Odt] 4 mg PO Q8HR PRN #20 tab.rapdis PRN Reason: Nausea Referrals: FROILAN ROSE MD [Staff Physician] - 7-10 days TJ MINA MD [Staff Physician] - 3-5 Days Time of Disposition: 16:50 Print Language: KAZAKH
[2021-10-23 16:52] LABS: Mucus,Urine 3+ /HPF
[2021-10-23 17:44] LABS: Bacteria,Urine 2+ /HPF (Negative)
[2021-10-23 18:01] LABS: Bilirubin,Urine Negative (Negative); Blood,Urine Negative (Negative); Color,Urine Yellow (Yellow); Urobilinogen,Urine < 2.0 mg/dL (<2.0)
== END 2021-10-23 18:46 | disposition home or self-care (01) ==
LOC: ED 11:01
DX: K21.9 Gastro-esophageal reflux disease without esophagitis (principal); R10.13 Epigastric pain; R11.2 Nausea with vomiting, unspecified; J45.909 Unspecified asthma, uncomplicated; Z79.899 Other long term (current) drug therapy
CPT/HCPCS: 36415; 80053; 81001; 83690; 84703; 85025; 99283; J3490; Q0162